=== PATIENT | male | born 1955 | race Caucasian/White ===

== ENCOUNTER → 2016-04-17 | Outpatient (CLI) | payer BC ==
[~2016-04-17] MED LIST: ACET-1138 PO; ASCO10003; ASPEC81 PO; B-CO1CAP2; CHOL1CAP57 PO; CLB200 PO; CYCL0.052 OP; DLD2 PO; FLM4 PO; LSX20 PO; META1TAB22 PO; ONDA8TAB6 PO; POTATAB2 PO; [UNRECOGNIZED DRUG - CODE] SL; [UNRECOGNIZED DRUG - OTHER]
--- NOTE | 2016-04-17 13:39 | DIAGNOSTIC IMAGING REPORT ---
KUB CLINICAL HISTORY: Nephrolithiasis. Encounter for prostate cancer screening. COMPARISON STUDY: KUB November 12, 2012. FINDINGS: A left pelvic calcification represents a phlebolith. Right pelvic calcifications are new since prior exam but likely reflect phleboliths as well. No renal calculi are identified although the renal shadows are partially obscured by stool. Bowel gas pattern is normal. There is mild dextroscoliosis at the thoracolumbar junction. IMPRESSION: 1. No urinary calculi identified although the renal shadows are partially obscured by stool. 2. Several right pelvic calcifications. Although new since prior exam, the appearance favors phleboliths. Electronically signed by: Stephen Morgan M.D. 04/17/2016 1:38 PM Dictated Date/Time: 04/17/2016 1:36 PM
== END | disposition home or self-care (01) ==
LOC: C.LAB 12:46
PROVIDERS: ATTEND Urology
DX: Z12.5 Encounter for screening for malignant neoplasm of prostate (principal)

== ENCOUNTER → 2017-02-20 | Outpatient (CLI) | payer BC ==
[~2017-02-20] MED LIST changes: -ASPEC81 PO; +ASPI-320 PO; -DLD2 PO; +HYDR2TAB3 PO; -ONDA8TAB6 PO
--- NOTE | 2017-02-20 13:33 | DIAGNOSTIC IMAGING REPORT ---
KUB HISTORY: PROSTATE CA SCREENING COMPARISON: KUB 04/17/2016. FINDINGS: The bowel gas pattern is unremarkable. There are no dilated loops of small bowel to suggest an obstruction. No renal calculi. No ureteral calculi. Calcifications in the deep pelvis likely represent phleboliths. These remain unchanged. Mild S-shaped scoliosis of the thoracolumbar spine. No suspicious lytic or blastic osseous lesions. No pneumoperitoneum or pneumatosis. IMPRESSION: No renal or ureteral stones. Electronically signed by: Rodri Becerra M.D. 02/20/2017 1:32 PM Dictated Date/Time: 02/20/2017 1:30 PM
== END | disposition home or self-care (01) ==
LOC: C.RAD1850 12:58
PROVIDERS: ATTEND Urology
DX: Z12.5 Encounter for screening for malignant neoplasm of prostate (principal); N40.0 Benign prostatic hyperplasia without lower urinary tract symptoms

== ENCOUNTER → 2017-05-13 | Outpatient (CLI) | payer OTHER ==
[~2017-05-13] MED LIST changes: +ASPEC81 PO; -ASPI-320 PO
--- NOTE | 2017-05-13 15:12 | DIAGNOSTIC IMAGING REPORT ---
R FOOT MIN 3 VIEWS ROUTINE CLINICAL HISTORY: Right foot pain. Attention second metatarsophalangeal joint. COMPARISON: None FINDINGS: Tarsometatarsal joints are intact. No acute fracture is identified. A 7 mm ossific density along the dorsal proximal navicular is likely old. There is moderate to marked joint space narrowing of the right fifth metatarsophalangeal joint. IMPRESSION: 1. No acute fracture or dislocation within the right foot. 2. Moderate to marked joint space narrowing of the right fifth metatarsophalangeal joint. Electronically signed by: Stephen Morgan M.D. 05/13/2017 3:11 PM Dictated Date/Time: 05/13/2017 3:08 PM
== END | disposition home or self-care (01) ==
LOC: C.RAD1850 14:57
DX: M79.671 Pain in right foot (principal)

== ENCOUNTER → 2017-07-01 | Outpatient (CLI) | payer OTHER ==
[~2017-07-01] MED LIST changes: -ASPEC81 PO; +ASPI-320 PO
[2017-07-01 09:33] LABS: BASO % 0.4 %; BASO ABS # 0.02 K/uL (0-0.2); EOS % 6.5 %; HEMATOCRIT 42.4 % (42-52); HEMOGLOBIN 14.8 g/dL (14.0-18.0); IG# 0.01 K/uL (0.00-0.02); LYMPH % 29.8 %; LYMPH ABS # 1.37 K/uL (1.2-3.4); MEAN CELL VOLUME 87.6 fL (80-100); MEAN CORPUSCULAR HEMOGLOBIN 30.6 pg (25-34); MEAN CORPUSCULAR HGB CONC 34.9 g/dl (32-36); MEAN PLATELET VOLUME 10.4 fL (7.4-10.4); MONO % 15.2 %; NEUT % 47.9 %; PLATELET COUNT 195 K/uL (130-400); RED CELL DISTRIBUTION WIDTH CV 13.4 % (11.5-14.5); RED CELL DISTRIBUTION WIDTH SD 43.3 fL (36.4-46.3)
--- NOTE | 2017-07-01 09:39 | DIAGNOSTIC IMAGING REPORT ---
CHEST 2 VIEWS ROUTINE CLINICAL HISTORY: 62 years-old Male presenting with LYMPHADENOPATHY, HYPERURICEMIA. TECHNIQUE: PA and lateral views of the chest were obtained. COMPARISON: 02/19/2016. FINDINGS: Cardiomediastinal silhouette normal. Lungs and pleural spaces clear. Degenerative changes of the thoracic spine. Upper abdomen normal. IMPRESSION: 1. No acute cardiopulmonary disease. Evaluation for hilar or mediastinal lymphadenopathy is significantly limited by radiograph. Electronically signed by: Jasvir Lundberg M.D. 07/01/2017 9:37 AM Dictated Date/Time: 07/01/2017 9:36 AM
[2017-07-01 10:23] LABS: ALBUMIN 3.7 gm/dl (3.4-5.0); ALT/SGPT 22 U/L (12-78); AST/SGOT 16 U/L (15-37); BLOOD UREA NITROGEN 20 mg/dl (7-18); CALCIUM 8.8 mg/dl (8.5-10.1); CARBON DIOXIDE 26 mmol/L (21-32); CREATININE 1.15 mg/dl (0.60-1.40); GLUCOSE 86 mg/dl (70-99); SODIUM 140 mmol/L (136-145)
[2017-07-01 10:30] LABS: ALKALINE PHOSPHATASE 58 U/L (45-117); TOTAL PROTEIN 6.8 gm/dl (6.4-8.2)
== END | disposition home or self-care (01) ==
LOC: C.RAD 08:36
DX: E79.0 Hyperuricemia without signs of inflammatory arthritis and tophaceous disease (principal); R59.1 Generalized enlarged lymph nodes

== ENCOUNTER → 2017-07-06 | Outpatient (CLI) | payer OTHER ==
--- NOTE | 2017-07-06 16:22 | DIAGNOSTIC IMAGING REPORT ---
L EXTREMITY NONVASCULAR LIMITED HISTORY: 62 years-old Male LEFT ARM acute pain and swelling of the left axilla COMPARISON: None available TECHNIQUE: Multiple real-time sonographic images of the left axillary tissues were obtained assessing grayscale appearance and color flow FINDINGS: Mildly enlarged lymph node of the left axilla measures 1.7 cm in short axis and 3.1 cm in long axis demonstrating a normal echogenic fatty hilum and reniform shape. Additional physiologic nonenlarged lymph nodes of the left axillar are also noted. No drainable fluid collections or additional lesions identified. IMPRESSION: Mildly enlarged left axillary lymph node, 1.7 cm. Correlate with clinical exam and patient history. The above report was generated using voice recognition software. It may contain grammatical, syntax or spelling errors. Electronically signed by: Aubrey Matthews M.D. 07/06/2017 4:21 PM Dictated Date/Time: 07/06/2017 4:20 PM
== END | disposition home or self-care (01) ==
LOC: C.ULTRBC 15:38
DX: R59.1 Generalized enlarged lymph nodes (principal)

== ENCOUNTER → 2017-07-14 | Outpatient (CLI) | payer OTHER ==
--- NOTE | 2017-07-14 11:55 | DIAGNOSTIC IMAGING REPORT ---
ULTRASOUND-GUIDED LEFT AXILLARY LYMPH NODE FINE-NEEDLE ASPIRATION BIOPSY CLINICAL HISTORY: Enlarged left axillary lymph node COMPARISON STUDY: 07/06/2017 FINDINGS: A timeout was performed. The risks of the procedure were explained to the patient and informed consent was obtained. The patient was prepped in sterile fashion. The skin was anesthetized with 1% lidocaine. Utilizing a 25-gauge needle under ultrasound guidance, 3 passes into the left axillary lymph node of concern were performed. Initial pathologic review indicates satisfactory material for diagnosis. The pathologist requested additional pass, to be sent entirely for flow cytometry It should be noted, that the lymph node of concern appears largely fatty replaced, and does not demonstrate any pathologically thickened cortex IMPRESSION: Successful ultrasound-guided fine-needle aspiration biopsy of the left axillary lymph node of concern Electronically signed by: Rob Lynn M.D. 07/14/2017 11:54 AM Dictated Date/Time: 07/14/2017 11:51 AM
== END | disposition home or self-care (01) ==
LOC: C.ULTR 10:43
DX: R59.0 Localized enlarged lymph nodes (principal)

== ENCOUNTER 2017-10-17 18:35 | Emergency (ER) | payer OTHER ==
[~2017-10-17] VITALS: Ht 172.7 cm; Wt 79.3 kg
[2017-10-17 18:38] VITALS: TEMP 36.8; Ht 172.7 cm; Wt 79.3 kg
[2017-10-17] MEDS ORDERED: PROPARACAINE HCL 0.5% OP SOLN 15 ML BTL OP STA (18:47)
--- NOTE | 2017-10-17 19:19 | EMERGENCY ROOM VISIT NOTE ---
ED Visit Note First contact with patient: 18:45 CHIEF COMPLAINT: Foreign body of the eye HISTORY OF PRESENT ILLNESS: This 62-year-old male patient presents to the emergency department complaining of pain and foreign body sensation in the right eye. This occurred after he was done sustaining a table.. There has been a constant moderate pain and irritation, redness and tearing in the eye. The vision has not been decreased over all. The patient does not wear contacts. The patient rates the pain as 9/10. The patient has not had previous injuries to this eye. Tetanus shot is up to date. REVIEW OF SYSTEMS: A 6 system review of systems was completed with positives and pertinent negatives listed in the HPI. ALLERGIES:no known drug allergies MEDICATIONS: Personally reviewed. Please see medication list. PMH: Bulged disc, acid reflux SOCIAL HISTORY: The patient lives at home with his family PHYSICAL EXAM: Vital Signs: Reviewed Nurse's notes, vital signs stable. Visual acuity performed. Please see nurse's notes.. GENERAL: This is a 62-year-old male, in no acute distress, but who is uncomfortable from the eye problem. Well -developed well-nourished. EYES: The pupils are equal round and reactive to light and accommodation. EOMs are full and without tenderness. There is clear discharge from the right eye which is injected. There is no visible foreign body on the cornea. There is a foreign body visible under the eyelid. This was removed using a Q-tip.. The cornea was clear and no hyphema was seen. No Fluorescein uptake was observed with ultraviolet light on the cornea EMERGENCY DEPARTMENT COURSE: I examined the patient. Alcaine 2 drops were placed in the patient's right eye. The foreign body was removed using a Q- tip as noted above. The patient was discharged home in good condition. DIAGNOSIS: Foreign body in the right upper eyelid DISCHARGE INSTRUCTIONS AND TREATMENT: Please use gentamicin 1 drop every 6 hours for the next 48 hours Please see your eye doctor or return to the emergency department if there is no improvement in your symptoms in the next 24 hours. Do not hesitate to return to the emergency department with any worsening symptoms, especially increased pain, swelling or redness around the eye or problems with vision It was a pleasure participating in your care today This chart was completed in part utilizing [employer] Speech Voice Recognition software. Attempts were made to minimize the grammatical errors, random word insertions, pronoun errors and incomplete sentences. Any formal questions or concerns about the content, text or information contained within the body of this dictation should be directly addressed to the provider for clarification.
[2017-10-17 19:39] VITALS: BP 117/75; PULSE 60; O2SAT 97
== END 2017-10-17 19:42 | disposition home or self-care (01) ==
LOC: C.EDB 18:36 → C.EDD 19:42
DX: S00.251A Superficial foreign body of right eyelid and periocular area, initial encounter (principal); X58.XXXA Exposure to other specified factors, initial encounter; K21.9 Gastro-esophageal reflux disease without esophagitis

== ENCOUNTER 2022-10-10 09:33 | Observation (INO) ==
--- NOTE | 2022-09-11 11:34 | PAT Medication Instructions ---
Medication Instructions Date of Service September 11, 2022 Home Medications Medication Instructions Recorded potassium citrate 10 mEq (1,080 1,080 mg PO DAILY #90 tabs 12/07/18 mg) tablet,extended release hydrocodone 5 mg-acetaminophen 325 1 tab PO Q6H PRN pain #12 tabs 07/22/21 mg tablet ondansetron 4 mg disintegrating 4 mg PO Q6H PRN nausea and 07/22/21 tablet vomiting #12 tabs tamsulosin 0.4 mg capsule (Flomax) 0.4 mg PO DAILY #7 caps 07/22/21 potassium citrate 10 mEq (1,080 mg) tablet,extended release 1,080 mg PO DAILY aripiprazole 2 mg tablet (Abilify) 2 mg PO QAM diclofenac sodium 75 mg tablet,delayed release 75 mg PO UD dorzolamide 22.3 mg-timolol 6.8 mg/mL eye drops 1 drp OPL BID fluoxetine 20 mg capsule 60 mg PO QAM latanoprost 0.005 % eye drops 1 drp OPL HS zolpidem 3.5 mg sublingual tablet 3.5 mg sublingual HS hydrocodone 5 mg-acetaminophen 325 mg tablet 1 tab PO Q6H PRN ondansetron 4 mg disintegrating tablet 4 mg PO Q6H PRN tamsulosin 0.4 mg capsule (Flomax) 0.4 mg PO DAILY Medical Marijuana 1 dose PO UD PRN Check if prescriber has ramon-operative recommendations, otherwise continue as normal aripiprazole 2 mg tablet (Abilify) 2 mg PO QAM Continue as directed tamsulosin 0.4 mg capsule (Flomax) 0.4 mg PO DAILY ASK your surgeon for instructions diclofenac sodium 75 mg tablet,delayed release 75 mg PO UD DO NOT take the morning of surgery potassium citrate 10 mEq (1,080 mg) tablet,extended release 1,080 mg PO DAILY Medical Marijuana 1 dose PO UD PRN Take morning of surgery With a small sip of water, OTHERWISE NOTHING TO EAT OR DRINK AFTER MIDNIGHT: dorzolamide 22.3 mg-timolol 6.8 mg/mL eye drops 1 drp OPL BID fluoxetine 20 mg capsule 60 mg PO QAM hydrocodone 5 mg-acetaminophen 325 mg tablet 1 tab PO Q6H PRN(if needed) ondansetron 4 mg disintegrating tablet 4 mg PO Q6H PRN(if needed) Take evening before surgery dorzolamide 22.3 mg-timolol 6.8 mg/mL eye drops 1 drp OPL BID latanoprost 0.005 % eye drops 1 drp OPL HS zolpidem 3.5 mg sublingual tablet 3.5 mg sublingual HS hydrocodone 5 mg-acetaminophen 325 mg tablet 1 tab PO Q6H PRN(if needed) ondansetron 4 mg disintegrating tablet 4 mg PO Q6H PRN(if needed) Other Notes If you have any questions please call us at [phone] or [phone] or [phone] or [phone]
--- NOTE | 2022-09-17 09:34 | Anesthesiology Consultation ---
Date of Service September 17, 2022 Assessment & Plan (1) Encounter for pre-operative examination: - COVID screening: Per assessment on 09/17: No known COVID-19 positive contacts or current COVID-19 related symptoms. Travel screen negative. Patient vaccinated. - Outpatient joint assessment: Pt currently scheduled for inpatient pathway. If surgeon requests review for outpatient joint pathway, patient is not recommended candidate for outpatient joint program from anesthesia standpoint based on available information. Chart Review Chart Review: Acceptable Risk for Surgery and Patient seen in Pre Admission Testing Teaching & Discussion Pre-Anesthesia Teaching/Discussion Notes: Instructed NPO after midnight before surgery,except medications with 15 cc of water. Medication instructions provided according to the PAT guidelines. History Surgery Operation Date: 10/10/22 09:20 Proposed Procedures p Left Total Knee Arthroplasty - Ruslan Greenfield DO Height/Weight Height: 5 ft 6 in Weight: 83.1 kg Allergies Allergy/AdvReac Type Severity Reaction Status Date / Time morphine Allergy Unknown Itchiness, Verified 09/16/22 10:23 constipation, urinary problems clarithromycin AdvReac Unknown Metallic Verified 09/16/22 10:23 taste in mouth OPIOIDS AdvReac Unknown Itchiness, Uncoded 09/16/22 10:23 "not effective" Medications Home Medications Medication Instructions Recorded Confirmed Last Taken potassium citrate 10 mEq (1,080 1,080 mg PO DAILY #90 tabs 12/07/18 09/10/22 Unknown mg) tablet,extended release aripiprazole 2 mg tablet (Abilify) 2 mg PO QAM 05/06/19 09/10/22 Unknown diclofenac sodium 75 mg 75 mg PO UD 07/21/21 09/10/22 Unknown tablet,delayed release dorzolamide 22.3 mg-timolol 6.8 1 drp OPL BID 07/21/21 09/10/22 Unknown mg/mL eye drops latanoprost 0.005 % eye drops 1 drp OPL HS 07/21/21 09/10/22 Unknown zolpidem 3.5 mg sublingual tablet 3.5 mg sublingual HS 07/21/21 09/10/22 Unknown hydrocodone 5 mg-acetaminophen 325 1 tab PO Q6H PRN pain #12 tabs 07/22/21 Unknown mg tablet ondansetron 4 mg disintegrating 4 mg PO Q6H PRN nausea and 07/22/21 Unknown tablet vomiting #12 tabs tamsulosin 0.4 mg capsule (Flomax) 0.4 mg PO DAILY #7 caps 07/22/21 09/10/22 Unknown Medical Marijuana 1 dose PO UD PRN Pain 09/10/22 09/10/22 Unknown sertraline 50 mg tablet (Zoloft) 50 mg PO DAILY 09/17/22 09/17/22 Unknown Past Medical History Medical History BPH (benign prostatic hyperplasia) Cervical myelopathy Fingertip numbness Chronic sinusitis Depression Glaucoma H/O calcium pyrophosphate deposition disease (CPPD) History of COVID-19 08/2021- flu like symptoms, resolved Insomnia Nephrolithiasis hx RICCO (obstructive sleep apnea) No current device Periodic limb movement sleep disorder Sjogrens syndrome Exercise / Class Metabolic Activity III < 4 Walking/Shop/Light housework (one FS (no CP, mild SOB- chronic)) Past Family History Family History Other No family history of adverse response to anesthesia Past Surgical History Surgical History History of arthroscopy of left shoulder x5 History of arthroscopy of right shoulder x2 History of esophagogastroduodenoscopy (EGD) History of right knee joint replacement Hx of colonoscopy Hx of fusion of cervical spine x2 Past Anesthesia History No Hx of Anesthesia Complications and No Family Hx of Anesthesia Complications History of PONV No Hx of PONV and No Hx of Motion Sickness Social History Smoking Status: Never smoker Do You Dip or Chew Tobacco: No Hx Alcohol Use: Yes (2 times per month) alcohol intake frequency: other Hx Substance Use: Yes substance use type: marijuana (Medical PRN pain) Review of Systems Patient denies chest pain, shortness of breath, fever, chills, cough, wheezing, palpitations. Physical Exam Vital Signs VITALS BP 110/74 P 56 TEMP 97.9 SP02 97%RA RESP 18 PHYSICAL Full cervical extension range of motion. Full TMJ range of motion. TMD 4 finger breaths Mallampati Score 1 Dentition: intact, several implants/crowns Lungs: clear throughout to auscultation Cardiac: regular rate and rhythm, no murmurs noted Spine: normal Carotid arteries: negative bruit Extremities: no LE edema Lab Results Anesthesia Preop Results Results Anesthesia Widget: WBC 4.70 K/ul (4.8-10.8) L 09/17/22 Hgb 15.4 g/dl (14.0-18.0) 09/17/22 Hct 44.8 % (42.0-52.0) 09/17/22 Plt 191 K/uL (130-400) 09/17/22 Na 138 mmol/L (136-145) 09/17/22 K 4.2 mmol/L (3.5-5.1) 09/17/22 Cl 106 mmol/L (98-107) 09/17/22 CO2 27 mmol/L (21-32) 09/17/22 BUN 15 mg/dl (6-23) 09/17/22 Creat 1.11 mg/dl (0.6-1.4) 09/17/22 Glucose Level 92 mg/dl (70-99(Fasting)) 09/17/22 PT 11.0 Seconds (9.0-12.0) 09/17/22 PTT 30.7 Seconds (21.0-31.0) 09/17/22 INR 1.0 (0.9-1.1) 09/17/22 Blood Type A Positive 09/17/22 Antibody Screen NEGATIVE 09/17/22 Testing Electrocardiogram Date: 09/17/22 SB with first degree AVB at 53bpm. Otherwise normal ECG. No significant change compared to 02/19/2016 per cardiology. Chest X-Ray Date: 09/17/22 FINDINGS: PA and lateral chest radiographs are compared to study dated 04/04/2019. The cardiomediastinal silhouette is unremarkable. The lungs and pleural spaces are clear. There is no pneumothorax. The bony thorax appears intact. There is mild thoracolumbar scoliosis. IMPRESSION: No active disease in the chest. Stress Test Date: 03/26/21 Type: exercise Normal exercise echo without evidence of inducible ischemia. Mild aortic root dilation. No significant valvular disease. Grade I DD. 7.70 METS. 88% MPHR. Other Testing 24 Hour holter monitor Date: 03/26/21 Findings: The patient was monitored for period of 24 hours. The rhythm during the entire monitoring period was normal sinus. The average heart rate was 67 beats per minute with a minimum of 50 beats per minute and a maximum 102 beats per minute. There was very rare atrial and ventricular ectopy without sustained arrhythmias. There were no significant episodes of bradycardia, heart block or pauses. No atrial fibrillation. One episode of shortness of breath while bending over correlated with normal sinus rhythm Impression: Normal Holter monitor without significant arrhythmia. Symptoms did not correlate with arrhythmia. COVID-19 Risk Screen Screening Information COVID-19 Screen Date: 09/17/22 Exposure 21 Days Family/Household +COVID Last 21 Days: No Exposure 10 Days Any COVID Exposure Last 10 Days: No Symptoms Last 10 Days Experienced COVID Sx Last 10 Days: No + COVID 0-90 Days COVID + in Last 0-90 Days: No
[~2022-10-10 09:33] MED LIST changes: -ACET-1138 PO; +ACETAMINOPHEN 500 MG TAB PO SCH; -ASCO10003; -ASPI-320 PO; -B-CO1CAP2; -CHOL1CAP57 PO; -CLB200 PO; -CYCL0.052 OP; +FAMOTIDINE 20 MG TAB PO SCH; -FLM4 PO; +GABAPENTIN 300 MG CAP PO SCH; -HYDR2TAB3 PO; +LIDOCAINE 2% 2 ML VIAL/AMP(20MG/ML) INFIL ONE; +LR 500ML BOLUS, THEN 15ML/HR IV SCH; +LR 60ML/HR IV SCH; -LSX20 PO; -META1TAB22 PO; +MIDAZOLAM HCL 1 MG/ML 2ML VIAL ONE; +ONDANSETRON INJ 2 MG/ML 2 ML VIAL ONE; +ORTHO JOINT MIX INFIL SCH; -POTATAB2 PO; +PROPOFOL IV EMULSION 10 MG/ML 20 ML VIAL IV ONE; +ROPIVACAINE 0.5% 5 MG/ML 30 ML VIAL ONE; +TRANEXAMIC ACID 1,000 MG **IV Intra-op IV SCH; +TRANEXAMIC ACID 1,000 MG **IV Pre-op IV SCH; -[UNRECOGNIZED DRUG - CODE] SL; -[UNRECOGNIZED DRUG - OTHER]; +ceFAZolin 2000MG 2,000 MG/15 ML SYR IV SCH; +dexAMETHasone 4 MG TAB PO SCH
--- NOTE | 2022-10-10 10:15 | History & Physical Bridge Note ---
Date of Service October 10, 2022 History & Physical Bridge Note I have examined the patient, reviewed the History & Physical and in the interval since the performance of the History & Physical I have noted the following changes of clinical significance: no changes noted
[2022-10-10] MEDS ORDERED: fentaNYL citrate PF 100 MCG/2 ML VIAL IV PRN (10:38)
[2022-10-10] MEDS ORDERED: ePHEDrine sulfate 50 MG/ML AMP IV PRN (10:38)
[2022-10-10] MEDS ORDERED: ATROPINE SULFATE 0.1 MG/ML 10ML SYR IV PRN (10:38)
[2022-10-10] MEDS ORDERED: ONDANSETRON INJ 2 MG/ML 2 ML VIAL IV PRN ×2 (10:38→14:37)
[2022-10-10] MEDS ORDERED: ORTHO JOINT ANESTHETIC ONE (10:39)
[2022-10-10] MEDS ORDERED: ePHEDrine sulfate 50 MG/ML AMP ONE (11:29)
--- NOTE | 2022-10-10 12:32 | Operative Report ---
PG Post Operative Report Pre & Post Diagnosis Operation Date: 10/10/22 11:00 Pre-Op Diagnosis: Left Knee Degenerative Joint Disease Post-Op Diagnosis: Left Knee Degenerative Joint Disease I identified the patient and participated in the time-out.: Yes Procedure Operation Date: 10/10/22 11:00 Actual Procedures p Left Total Knee Arthroplasty(Left) - Ruslan Greenfield DO Surgeon Ruslan Greenfield DO Insurance Territory Manager Ruslan Sykes PA-C Estimated Blood Loss 30 Findings Consistent with Post-Op Diagnosis Specimens Left femoral tibial bone Description of Procedure Implants used: I used a Arabella Persona total knee arthroplasty system with a size 7 PS femur, E tibia, 31 oval patella, and a size 10 CPS polyethylene bearing. All components were cemented in place with Biomet cement. Edgar arrived [facility] for the above procedure. She was seen in the preoperative holding area and the operative extremity was identified and signed. She was given a preoperative antibiotic, TXA, a spinal anesthetic and an adductor nerve block. She was taken back to the operating room and laid on the table in supine position. She was given basic sedation. The operative knee was then prepped and draped in sterile fashion. A timeout was done, and the patient and the operative extremity was properly identified. A midline incision was made directly over the patella. Dissection was taken down to the extensor mechanism. A midvastus arthrotomy was used. The medial retinaculum was released and the fat pad was mostly excised. The knee was flexed and the ACL, PCL, and meniscus were removed. A drill was sent down the center of the femoral canal followed by an intramedullary aurelio. Off that aurelio a distal femoral cutting block was placed. 9 mm was resected off the distal femur at 5 of valgus. A posterior referencing AP sizing guide was then placed on the distal femur. The femur measured to be a size 7. 2 drill holes were placed in 3 of external rotation. A 4-in-1 cutting block was then impacted into place. Anterior, posterior, and chamfer cuts were then made. The proximal tibia was then exposed. An external tibial alignment guide was placed. A tibial cut guide was then anchored in place and the proximal tibia was then resected. The posterior aspect of the knee was then opened up and any additional meniscus fragments and osteophytes were removed. The tibia measured to be a size E. The tibial plate was then placed in the appropriate rotation and the tibia was drilled and punched. Trial components were then placed. I used a size 10 CPS polyethylene insert. The knee was brought through a full range of motion and felt to be stable. The peg holes for the femoral component were then drilled. The patella was then everted and 9 mm was resected off the posterior aspect of the patella. The patella measured to be a size 31 oval. 3 peg holes were then drilled. A trial patella was placed. The knee was once again brought through a full range of motion and felt to be stable. Trial components were then removed. The surrounding soft tissues were injected with 100 cc of an orthopedic pain control cocktail. All components were then cemented into place with Biomet cement. The final polyethylene insert was then snapped into place. Once cement was dry the tourniquet was deflated. Hemostasis was obtained. A Surgiphor Betadine lavage was used throughout the case. The midvastus arthrotomy was then closed with #1 Vicryl suture. The skin was closed with 2-0 Vicryl, 3-0V lock suture, and indu. A soft compressive dressing was placed. She was then transferred to a hospital bed and taken to the postanesthesia care unit in stable condition. She tolerated the procedure well. Ruslan Sykes PA-C, was present for the entire procedure. He was critical for patient positioning, prepping, draping, retraction exposure, wound closure and application of sterile dressing. I attest to the content of the Intraoperative Record and any orders documented therein. Any exceptions are noted below.
--- NOTE | 2022-10-10 13:34 | XRay Report ---
TWO VIEWS LEFT KNEE CLINICAL HISTORY: Postoperative examination. FINDINGS: AP and crosstable lateral portable views of the left knee are obtained. A left knee arthrop lasty is in near anatomic alignment. There has been undersurface remodeling of the patella. No acute fracture is seen. There are expected postoperative changes around the knee including skin clips, soft tissue edema, and subcutaneous gas. IMPRESSION: Expected postoperative changes status post left knee arthroplasty. No acute fracture is s een. ACT 112: Negative or not required by law. Electronically signed by: Vito Mcintyre M.D. 10/10/2022 1:33 PM
--- NOTE | 2022-10-10 14:03 | Anesthesiology Progress Note ---
Date of Service October 10, 2022 Anesthesia Post Procedure Vital Signs Vital Signs: Temp Pulse Pulse Resp BP Pulse Ox O2 Del Method 10/10/22 13:40 57 L 15 132/79 93 Room Air 10/10/22 13:30 56 L 12 135/74 94 Room Air 10/10/22 13:20 69 14 128/79 98 Room Air 10/10/22 13:10 50 L 15 116/71 98 Oxymask 10/10/22 13:00 67 15 112/66 98 Oxymask 10/10/22 12:52 36 C L 55 L 15 104/66 94 Oxymask 10/10/22 10:04 36.7 C 62 18 111/69 96 Room Air O2 Flow Rate 10/10/22 13:40 10/10/22 13:30 10/10/22 13:20 10/10/22 13:10 5 10/10/22 13:00 9 10/10/22 12:52 9 10/10/22 10:04 Transfer of Care Handoff Completed per policy Notes Mental Status: alert / awake / arousable and participated in evaluation Patient Amnestic to Procedure: Yes Nausea / Vomiting: adequately controlled Pain: adequately controlled Airway Patency, RR, SpO2: stable & adequate BP & HR: stable & adequate Hydration State: stable & adequate Neuraxial Anesthesia: was administered and sensory block is resolving Anesthetic Complications: no major complications apparent and Pt Satisfied with anesthetic care
[2022-10-10] MEDS ORDERED: SODIUM CHLORIDE 0.9% 1000ML 1,000 ML IV SCH (14:37)
[2022-10-10] MEDS ORDERED: ONDANSETRON 4 MG OD TAB PO PRN (14:37)
[2022-10-10] MEDS ORDERED: NALOXONE HCL 0.4 MG/1 ML VIAL/CARP IV PRN (14:37)
[2022-10-10] MEDS ORDERED: MAGNESIUM HYDROXIDE SUSP 30 ML UDC PO PRN (14:37)
[2022-10-10] MEDS ORDERED: bisacodyL 10 MG SUPP PR PRN (14:37)
[2022-10-10] MEDS ORDERED: METOCLOPRAMIDE HCL INJ 5 MG/ML 2 ML VIAL IV PRN (14:37)
[2022-10-10] MEDS: ACETAMINOPHEN 500 MG TAB PO SCH ×2 (15:54→21:29)
[2022-10-10] MEDS: KETOROLAC TROMETHAMINE 15 MG/ML VIAL IV SCH ×2 (15:54→21:31)
[2022-10-10] MEDS: ceFAZolin 2000MG 2,000 MG/15 ML SYR IV SCH (18:33)
[2022-10-10] MEDS ORDERED: ZOLPIDEM TARTRATE 5 MG TAB PO SCH (21:00)
[2022-10-10] MEDS ORDERED: SENNA 8.6 MG TAB PO SCH (21:00)
[2022-10-10] MEDS ORDERED: LATANOPROST 0.005% OP SOLN 2.5 ML BTL OPL SCH (21:00)
[2022-10-10] MEDS: HYDROmorphone HCL 2 MG TAB PO PRN (21:28)
[2022-10-10] MEDS: ASPIRIN 81 MG ECTAB PO SCH (21:29)
[2022-10-10] MEDS: DOCUSATE SODIUM 100 MG CAP PO SCH (21:29)
[2022-10-10] MEDS: DORZOLAMIDE/TIMOLOL 22.3/6.8MG/ML 10 ML BTL OPL SCH (21:30)
[2022-10-10] MEDS: oxyCODONE HCL IR 5 MG TAB (IMMEDIATE RELEASE) PO PRN (23:59)
[2022-10-11] MEDS: HYDROmorphone HCL 2 MG TAB PO PRN ×2 (02:36→07:35)
[2022-10-11] MEDS: KETOROLAC TROMETHAMINE 15 MG/ML VIAL IV SCH ×2 (02:37→08:39)
[2022-10-11] MEDS: ceFAZolin 2000MG 2,000 MG/15 ML SYR IV SCH (02:55)
[2022-10-11] MEDS: ACETAMINOPHEN 500 MG TAB PO SCH ×2 (05:40→06:23)
[2022-10-11] MEDS: oxyCODONE HCL IR 5 MG TAB (IMMEDIATE RELEASE) PO PRN (06:22)
[2022-10-11] MEDS ORDERED: dexAMETHasone 4 MG TAB PO SCH (08:00)
[2022-10-11] MEDS: DOCUSATE SODIUM 100 MG CAP PO SCH (08:37)
[2022-10-11] MEDS: ASPIRIN 81 MG ECTAB PO SCH (08:37)
[2022-10-11] MEDS: DORZOLAMIDE/TIMOLOL 22.3/6.8MG/ML 10 ML BTL OPL SCH (08:38)
--- NOTE | 2022-10-11 08:40 | Orthopedic Progress Note ---
Date of Service October 11, 2022 Assessment & Plan (1) Status post left knee replacement: Overall he is doing fairly well. He is not having too much pain in the left knee. He understands he overdid a little bit yesterday. He will be seen by physical therapy today for ambulation and range of motion exercises. He is on aspirin for DVT prophylaxis. He can be discharged home later today. The nursing staff can change his dressing after physical therapy. He will follow-up with orthopedics in 2 weeks. Justin Hernández was seen and examined at bedside this morning. Overall he is doing very well. He overdid it a little bit yesterday and is now having some pain in his left knee. He has been up and ambulating to the bathroom. He has no complaints.. Review of Systems All systems reviewed & are unremarkable except as noted in HPI & below. Physical Exam On physical examination of left knee, the dressing is clean and dry. His leg is out in full extension. He has active dorsiflexion plantarflexion of his left ankle.. Results & Data Results & Data Laboratory Results . Diagnostic Findings Postoperative x-rays of the left knee show the prosthesis to be in anatomic alignment without any evidence of fracture, desiccation, or loosening.. PG Care Time/CCT Total # of Minutes Spent Total Time Spent with Patient: Total time spent is greater than 50% in coordination of care (as documented) at patient's floor/unit and/or counseling patient: Coding Level of Care Code 51778 Post Operative Follow-Up Diagnoses Status post left knee replacement Z96.652
--- NOTE | 2022-10-11 08:41 | Discharge Summary ---
Date of Service October 11, 2022 Principal Diagnosis Same as "Discharge Diagnosis" noted below under Discharge Instructions. Discharge Exam On physical examination of left knee, the dressing is clean and dry. His leg is out in full extension. He has active dorsiflexion plantarflexion of his left ankle.. Discharge Data Procedures Performed Operation Date: 10/10/22 11:00 Actual Procedures p Left Total Knee Arthroplasty(Left) - Ruslan Greenfield DO Ordered Studies 10/10/22 05:00 US - OR guided needle placemen Routine Hospital Course (1) Status post left knee replacement: On October 10, 2022 Edgar arrived at [facility] and underwent a left knee replacement without complication. He had a spinal anesthetic. Postoperatively he was started on aspirin for DVT prophylaxis and transferred to the general orthopedic floors. His hospital course was uneventful. On postop day #1, his vital signs were stable and his pain was well controlled. He was able to participate well with physical therapy doing ambulation and range of motion exercises. He was then discharged home. He will follow-up with orthopedics in 2 weeks. PG Care Time/CCT Total # of Minutes Spent Total Time Spent with Patient: Total time spent is greater than 50% in coordination of care (as documented) at patient's floor/unit and/or counseling patient: Discharge Plan Discharge Items Patient Disposition: Home - Home Health Services Reason For Visit: DJD Left Knee Discharge Diagnosis: Left knee replacement Activity: Per Instructions section Non-emergency contact: Surgeon Call non-emergency contact if: your wound has increased redness and your wound has increased drainage Follow-up/Referrals: Wayne Kim MD [Primary Care Provider] - Diet: Regular Addtl Attending Provider Instructions: Activity and Therapy Recommendations: * If you are using [facility] then therapy will be provided at your home until they feel you have accomplished all of your goals. * If you are using [facility] then Physical Therapy will be provided until they feel you are ready to start Outpatient Physical Therapy. * If you are not using home therapy then Outpatient Physical Therapy should start about 3-5 days from your day of surgery. Therapy will last about 6-10 weeks * It is important not to put a pillow under your knee when you are relaxing or sleeping. It is just as important to make sure you are getting your knee perfectly straight as it is to regain your knee bend. * You were shown a series of exercises in the hospital. Do these exercises three times each day including the exercises you were shown in physical therapy. * Get up and walk several times each day. For the first four weeks, try not to stand or walk for more than one hour at a time. If you do stand or walk for more than one hour, you will not hurt anything, but your leg will likely swell. * As you feel comfortable, you may change from the walker or crutches to a cane and then to independent walking. Medications: * Narcotic You will likely be sent home from the hospital with a prescription for the narcotic pain medication that worked best throughout your stay. * Aspirin Most patients will be required to take Aspirin 81mg twice a day for 6 weeks after surgery. This is obtained [id number] and a prescription is not necessary. * Other medications may be prescribed for specific circumstances. If you have any questions, please call the office at . * Resume previous home medications unless otherwise instructed TEDs/Elastic Stockings: The white elastic stockings help limit swelling and prevent blood clots from forming in your legs.~ The more you wear them, the more they work. Wear them for six weeks. Dressing Care: The dressing can be changed after physical therapy on postop day #1. Daily dry dressing changes for a few days, especially if the incision is still draining some. If the incision is not draining then you may leave the indu open to air. If there is a little bit of drainage or if the indu are getting stuck on your clothing then cover the incision with a dry dressing. The indu will be removed at your 2 week follow-up appointment. Showering: You may shower 5 days from the day of surgery as long as the incision is no longer draining. You may shower with the indu exposed. Let soapy water run over the indu and pat them dry. Do not scrub or soak the incision. Things To Watch For: * Drainage from the incision site that occurs more than one week after your surgery. * Increased redness at the incision site. * Fever above 102 degrees Fahrenheit. * Unusual chest pain or shortness of breath. * Call [facility] at with any of the above prob lems Follow-Up Visit: Follow-up with Dr. Greenfield's PA (Ruslan Sykes) 2-3 weeks after your day of surgery. He will remove your indu and answer any questions. If you have any additional questions or concerns, Dr Greenfield is usually in the office at the same time and will be available An appointment was probably scheduled when you signed-up for surgery in the office. If you have any questions call Office Instructions: More detailed instructions as well as Frequently Asked Questions were provided in a folder by our office when you signed-up for surgery. Please review these instructions when you get home. If you have any further questions or concerns, please feel free to call the office at [phone] Pending Studies at Discharge: No Stand-Alone Forms: My [facility], Smoking Cessation Medications and DC Order Prescriptions: New hydromorphone [Dilaudid] 2 mg Tablet 2 mg PO Q4H PRN (Reason: pain) Qty: 40 0RF aspirin 81 mg Tablet,Delayed Release (Dr/Ec) 81 mg PO BID 42 Days Qty: 0 0RF Continued potassium citrate 10 mEq (1,080 mg) tablet extended release 1,080 mg PO DAILY Qty: 90 3RF amoxicillin 500 mg tablet 2,000 mg PO ONCE Qty: 4 3RF Rx Instructions: 4 tabs 1 hour prior to procedure aripiprazole [Abilify] 2 mg tablet 2 mg PO QAM latanoprost 0.005 % drops 1 drp OPL HS diclofenac sodium 75 mg tablet,delayed release (DR/EC) 75 mg PO UD dorzolamide-timolol 22.3-6.8 mg/mL drops 1 drp OPL BID zolpidem 3.5 mg tablet, sublingual 3.5 mg SUBLINGUAL HS tamsulosin [Flomax] 0.4 mg capsule 0.4 mg PO DAILY Qty: 7 0RF ondansetron 4 mg tablet,disintegrating 4 mg PO Q6H PRN (Reason: nausea and vomiting) Qty: 12 0RF Medical Marijuana 1 dose PO UD PRN (Reason: Pain) sertraline [Zoloft] 50 mg Tablet 50 mg PO DAILY rosuvastatin 5 mg Tablet 5 mg PO DAILY Discontinued hydrocodone-acetaminophen 5-325 mg tablet 1 tab PO Q6H PRN (Reason: pain) Qty: 12 0RF Rx Instructions: Initial treatment Admission Data Admit Date/Time: 10/10/22 12:54 Attending Provider: Ruslan Greenfield Admit Provider: Ruslan Greenfield Primary Care Provider: Wayne Kim
[2022-10-11] MEDS ORDERED: ROSUVASTATIN CALCIUM 5 MG TAB PO SCH (09:00)
[2022-10-11] MEDS ORDERED: SERTRALINE HCL 50 MG TABLET PO SCH (09:00)
[2022-10-11] MEDS ORDERED: POTASSIUM CITRATE 10 MEQ TAB PO SCH (09:00)
[2022-10-11] MEDS ORDERED: ARIPIprazole 1 MG/ML ORAL SOLN 150 ML BTL PO SCH (09:00)
[2022-10-11] MEDS ORDERED: TAMSULOSIN HCL 0.4 MG CAP PO SCH (09:00)
[2022-10-11] MEDS ORDERED: MULTIVITAMIN TAB PO SCH (09:00)
== END 2022-10-11 11:26 | disposition home health service (06) ==
LOC: ASU 09:33 → 3N 09:33